=== PATIENT | male | born 1950 | race Caucasian/White ===

== ENCOUNTER → 2017-06-25 | Outpatient (REF) ==
[~2017-06-25] MED LIST: NEVANAC 3 ML3 ML OD; NO HOME MEDICATIONS; PRINZIDE 25 MG-1 TAB PO; VIGAMOX 0.5% 3 M3 ML OP; [UNRECOGNIZED DRUG - OTHER]
== END ==
LOC: ZLAB.WCH 14:57
DX: Z01.89 Encounter for other specified special examinations (principal)
CPT/HCPCS: G0103

== ENCOUNTER → 2017-06-27 | Outpatient (REF) | LOC: ZLAB.WCH 14:48 | DX: Z12.5 Encounter for screening for malignant neoplasm of prostate (principal) | CPT/HCPCS: G0103 ==

== ENCOUNTER → 2018-10-08 | Outpatient (CLI) | payer MEDICARE | LOC: COL.VAS 10-06 08:00 | DX: I10 Essential (primary) hypertension (principal); J44.9 Chronic obstructive pulmonary disease, unspecified; Q21.1 Atrial septal defect; I34.0 Nonrheumatic mitral (valve) insufficiency ==

== ENCOUNTER → 2019-02-10 | Outpatient (CLI) | payer MEDICARE | LOC: COL.VAS 13:53 | DX: M79.89 Other specified soft tissue disorders (principal) ==